=== PATIENT | female | born 1990 ===

== ENCOUNTER 2019-04-01 23:19 | Emergency (ER) | payer SELFPAY ==
[2019-04-01] MEDS ORDERED: HYDROcodone/Acetaminophen 10/325 mg Tablet ONE (23:27)
== END 2019-04-01 23:40 | disposition home or self-care (01) ==
LOC: ERS 23:19
DX: H60.502 Unspecified acute noninfective otitis externa, left ear (principal)
CPT/HCPCS: 99282